=== PATIENT | male | born 1980 | race Caucasian/White ===

== ENCOUNTER 2021-02-02 10:09 | Emergency (ER) | payer MEDICAID, OTHER ==
[~2021-02-02] VITALS: Ht 172.7 cm; Wt 116.6 kg
[~2021-02-02 10:09] MED LIST: CITA10TA11 PO; DEPER500 PO; RISP1TAB1 PO; TRAZ-343 PO
[2021-02-02 10:22] VITALS: BP 134/88
--- NOTE | 2021-02-02 10:28 | NUR ---
Alesia pollard in [facility] - 02/02/21 at 1030 by MED1 [id number]
[2021-02-02 10:40] VITALS: BP 126/73
--- NOTE | 2021-02-02 10:53 | NUR ---
CANDE. HANDED ON URINE CUP.
--- NOTE | 2021-02-02 14:12 | NUR ---
JOSE LARES ATTEMPTED TO CALL PT BACK. NO ANSWER
--- NOTE | 2021-02-02 14:30 | NUR ---
NO ANSWER IN LOBBY
--- NOTE | 2021-02-02 15:50 | NUR ---
PATIENT LEFT WITHOUT BEING SEEN BY JOSE LARES. NO FURTHER CARE PROVIDED FOR PATIENT.
[2021-02-03] MEDS ORDERED: SULF-58 PO (08:53)
[2021-02-03] MEDS ORDERED: NAPR-1704 PO (08:53)
== END 2021-02-02 15:50 | disposition left against medical advice (07) ==
LOC: MED 10:09
DX: R05 Cough (principal); R51.9 Headache, unspecified; M79.10 Myalgia, unspecified site; Z53.21 Procedure and treatment not carried out due to patient leaving prior to being seen by health care provider
CPT/HCPCS: 82948; 99281

== ENCOUNTER 2021-02-03 05:40 | Emergency (ER) | payer OTHER ==
[~2021-02-03] VITALS: Ht 177.8 cm; Wt 117.9 kg
[2021-02-03 05:57] VITALS: BP 146/78
[2021-02-03 07:59] LABS: BASOPHILS % (AUTO) 0.3 % (0.0-2.0); EOSINOPHILS # (AUTO) 0.3 K/uL (0-0.4); EOSINOPHILS % (AUTO) 3.9 % (0.0-4.0); HEMATOCRIT 46.1 % (36-52); HEMOGLOBIN 15.6 g/dL (12.0-18.0); LYMPHOCYTES # (AUTO) 2.3 K/uL (2.0-11.5); LYMPHOCYTES % (AUTO) 26.9 % (20.5-51.1); MEAN CORPUSCULAR HEMOGLOBIN 30 pg (27-31); MEAN CORPUSCULAR HGB CONC 34 g/dL (33-37); MEAN CORPUSCULAR VOLUME 89.1 fL (80-94); MONOCYTES # (AUTO) 0.7 K/uL (0.8-1.0); MONOCYTES % (AUTO) 7.9 % (1.7-9.3); NEUTROPHILS # (AUTO) 5.3 K/uL (1.8-7.7); PLATELET COUNT (AUTO) 309 K/uL (140-450); RED BLOOD CELL COUNT(AUTO) 5.18 MIL/uL (4.20-6.10); RED CELL DISTRIBUTION WIDTH 13.2 % (11.6-13.7); WHITE BLOOD COUNT (AUTO) 8.6 K/uL (4.8-10.8)
[2021-02-03 08:10] LABS: ALBUMIN 3.3 g/dL (3.4-5.0); ANION GAP 8.1 (8-16); CARBON DIOXIDE 29.2 mmol/L (21-32); CREATININE 0.7 mg/dL (0.6-1.3); POTASSIUM 3.3 mmol/L (3.5-5.1); TOTAL BILIRUBIN 0.6 mg/dL (0.0-1.0)
[2021-02-03 08:28] LABS: APPEARANCE,URINE CLEAR (CLEAR); BILIRUBIN,URINE NEGATIVE (NEGATIVE); BLOOD, URINE TRACE-I (NEGATIVE); COLOR,URINE YELLOW (YELLOW); LEUKOCYTE ESTERASE ,URINE 1+ (NEGATIVE); NITRITE, URINE NEGATIVE (NEGATIVE); UGLUCOSE NEGATIVE (NEGATIVE)
[2021-02-03 08:30] LABS: RBC,URINE 0-5 /HPF (0-5)
[2021-02-03 08:31] LABS: WBC,URINE 0-5 /HPF (0-5)
[2021-02-03] MEDS ORDERED: SULF-58 PO (08:53)
[2021-02-03] MEDS ORDERED: NAPR-1704 PO (08:53)
[2021-02-03] MEDS ORDERED: IBUPROFEN 400 MG TAB PO ONE (08:55)
[2021-02-03 09:22] VITALS: BP 151/94
== END 2021-02-03 09:23 | disposition home or self-care (01) ==
LOC: MED 05:40
DX: L98.9 Disorder of the skin and subcutaneous tissue, unspecified (principal); I10 Essential (primary) hypertension; N39.0 Urinary tract infection, site not specified; J45.909 Unspecified asthma, uncomplicated; F17.200 Nicotine dependence, unspecified, uncomplicated; Z79.899 Other long term (current) drug therapy; Z88.8 Allergy status to other drugs, medicaments and biological substances; Z98.890 Other specified postprocedural states
CPT/HCPCS: 36415; 76705; 80053; 81001; 83690; 85025; 87086; 99284

== ENCOUNTER 2021-02-10 05:23 | Emergency (ER) | payer OTHER ==
[~2021-02-10] VITALS: Ht 177.8 cm; Wt 108.9 kg
[~2021-02-10 05:23] MED LIST changes: +NAPR-1704 PO; +SULF-58 PO
[2021-02-10 05:24] VITALS: BP 144/99
--- NOTE | 2021-02-10 05:24 | NUR ---
to bed ambulatory
--- NOTE | 2021-02-10 05:40 | NUR ---
PATIENT C/O RLQ--FLANK PAIN. PATIENT HAS V/N AND DENIES FEVER. PATIENT DENIES TAKING ANY MEDICATION. PATIENT ALSO WAS HERE A COUPLE OF DAYS AGO AND DENIES TAKING ANY OF THE PRESCRIBED MEDICATIONS PREVIOUSLY. 04/11 SHOOTING PAIN THAT RADIATES TO THE BACK AND DOWN THE RIGHT LEG. AAOX4. PMH: UTI DENIES
--- NOTE | 2021-02-10 05:48 | NUR ---
PATIENT COMPLAINING OF PAIN-- NOTIFIED ERMD
--- NOTE | 2021-02-10 06:00 | NUR ---
PATIENT LEFT WITHOUT BEING SEEN BY DR. WASHINGTON. NO FURTHER CARE PROVIDED FOR PATIENT.
[2021-02-10] MEDS ORDERED: ACET-10509 PO (16:53)
[2021-02-10] MEDS ORDERED: DOCU-299 PO (16:53)
== END 2021-02-10 06:00 | disposition left against medical advice (07) ==
LOC: MED 05:23
DX: R30.9 Painful micturition, unspecified (principal); Z53.21 Procedure and treatment not carried out due to patient leaving prior to being seen by health care provider

== ENCOUNTER 2021-02-10 14:49 | Emergency (ER) | payer OTHER ==
[~2021-02-10] VITALS: Ht 177.8 cm; Wt 108.9 kg
[2021-02-10 14:56] VITALS: BP 169/76
[2021-02-10] MEDS ORDERED: MECLIZINE 25 MG TAB PO ONE (15:20)
--- NOTE | 2021-02-10 15:55 | NUR ---
40 Y/O MALE C/O DIZZINESS AND WEAKNESS X1 HOUR AGO. PT STATES HE FEELS THE ROOM IS SPINNING AND FEELS FAINT, DENIES SYNCOPAL EPISODE. PT ALSO C/O 03/12 RLQ ABDOMINAL PAIN WITH DYSURIA. PT WAS SEEN HERE 02/03 WITH SAME COMPLAINT BUT STATES HE NEVER FILLED PRESCRIPTIONS OR FOLLOWED UP WITH PCP. PT STATES HE WAS CONSTIPATED BUT ADMINISTERED AN ENEMA THIS MORNING WHICH RELIEVED HIM. DENIES NAUSEA/VOMTITING. PT A/O X4 WITH EVEN AND UNLABORED RESPIRATIONS. PMH: HTN, ASTHMA, SEIZURE NKDA
[2021-02-10 16:05] LABS: BASOPHILS % (AUTO) 0.4 % (0.0-2.0); EOSINOPHILS # (AUTO) 0.5 K/uL (0-0.4); EOSINOPHILS % (AUTO) 4.3 % (0.0-4.0); HEMATOCRIT 47.2 % (36-52); HEMOGLOBIN 15.9 g/dL (12.0-18.0); LYMPHOCYTES # (AUTO) 2.4 K/uL (2.0-11.5); LYMPHOCYTES % (AUTO) 22.5 % (20.5-51.1); MEAN CORPUSCULAR HEMOGLOBIN 30 pg (27-31); MEAN CORPUSCULAR HGB CONC 34 g/dL (33-37); MEAN CORPUSCULAR VOLUME 89.8 fL (80-94); MONOCYTES # (AUTO) 0.9 K/uL (0.8-1.0); MONOCYTES % (AUTO) 8.2 % (1.7-9.3); NEUTROPHILS # (AUTO) 6.8 K/uL (1.8-7.7); NEUTROPHILS % (AUTO) 64.6 % (42.2-75.2); PLATELET COUNT (AUTO) 366 K/uL (140-450); RED BLOOD CELL COUNT(AUTO) 5.26 MIL/uL (4.20-6.10); WHITE BLOOD COUNT (AUTO) 10.5 K/uL (4.8-10.8)
[2021-02-10 16:22] LABS: ALBUMIN 3.4 g/dL (3.4-5.0); ANION GAP 7.6 (8-16); CARBON DIOXIDE 31.1 mmol/L (21-32); CREATININE 0.8 mg/dL (0.6-1.3); POTASSIUM 3.7 mmol/L (3.5-5.1); TOTAL BILIRUBIN 0.3 mg/dL (0.0-1.0)
--- NOTE | 2021-02-10 16:46 | NUR ---
JOSE MCKEON EVALUATING PT IN CHAIR A
[2021-02-10] MEDS ORDERED: DOCU-299 PO (16:53)
[2021-02-10] MEDS ORDERED: ACET-10509 PO (16:53)
--- NOTE | 2021-02-10 16:59 | NUR ---
Patient discharged with v/s stable. Written and verbal after care instructions ABOUT CONSTIPATION AND ABDOMINAL PAIN given and explained. Patient alert, oriented and verbalized understanding of instructions. Ambulatory with steady gait. All questions addressed prior to discharge. ID band removed. Patient advised to follow up with PMD. Rx of TYLENOL EXTRA STRENGTH AND DOCUSATE SODIUM given. Patient educated on indication of medication including possible reaction and side effects. Opportunity to ask questions provided and answered.
== END 2021-02-10 16:59 | disposition home or self-care (01) ==
LOC: MED 14:49
DX: K59.00 Constipation, unspecified (principal); J45.909 Unspecified asthma, uncomplicated; I10 Essential (primary) hypertension; Z79.899 Other long term (current) drug therapy
CPT/HCPCS: 36415; 80053; 85025; 93005; 99284; J8597

== ENCOUNTER 2021-03-17 14:00 | Emergency (ER) | payer OTHER ==
[~2021-03-17] VITALS: Ht 180.3 cm; Wt 117.9 kg
[~2021-03-17 14:00] MED LIST changes: +ACET-10509 PO; +DOCU-299 PO
--- NOTE | 2021-03-17 14:00 | NUR ---
1350 - PT BROUGHT TO BED 5 VIA [facility]
[2021-03-17 14:04] VITALS: BP 134/75
[2021-03-17] MEDS ORDERED: LORazepam 2 MG/ML VIAL IM ONE (14:10)
[2021-03-17] MEDS ORDERED: HALOPERIDOL IM 5 MG/ML VIAL IM ONE (14:10)
[2021-03-17] MEDS ORDERED: diphenhydrAMINE 50 MG/ML VIAL IM ONE (14:10)
--- NOTE | 2021-03-17 14:15 | NUR ---
Pt refusing blood work. PD at bedside.
--- NOTE | 2021-03-17 14:15 | NUR ---
Pt placed on 5150 03/17/21 @1400 for DTS by Markus METZGER. Per Markus METZGER, brother reported that pt stated, "I'm just feeling tired. I'm going to end my life. I have 2 cans of gasline in my car. You are going to see me on [employer] news." Pt is homeless and recently lost custody of his daughters. Pt called 911 for cc dizziness. Per EMS entire vehicle smelled of gasoline. Pt had 2 full tanks of gasoline in the car. Pt a&O x4. GCS 15. Pt changed into gown. All belongings given to security.
--- NOTE | 2021-03-17 14:18 | NUR ---
Phleb at bedside
--- NOTE | 2021-03-17 14:26 | NUR ---
EKG being performed at bedside
[2021-03-17 14:33] LABS: BASOPHILS % (AUTO) 0.2 % (0.0-2.0); EOSINOPHILS # (AUTO) 0.3 K/uL (0-0.4); EOSINOPHILS % (AUTO) 2.7 % (0.0-4.0); HEMATOCRIT 46.3 % (36-52); HEMOGLOBIN 15.6 g/dL (12.0-18.0); LYMPHOCYTES # (AUTO) 2.4 K/uL (2.0-11.5); LYMPHOCYTES % (AUTO) 21.9 % (20.5-51.1); MEAN CORPUSCULAR HEMOGLOBIN 30 pg (27-31); MEAN CORPUSCULAR HGB CONC 34 g/dL (33-37); MEAN CORPUSCULAR VOLUME 89.1 fL (80-94); MONOCYTES # (AUTO) 0.8 K/uL (0.8-1.0); MONOCYTES % (AUTO) 7.6 % (1.7-9.3); NEUTROPHILS # (AUTO) 7.5 K/uL (1.8-7.7); NEUTROPHILS % (AUTO) 67.6 % (42.2-75.2); PLATELET COUNT (AUTO) 384 K/uL (140-450); RED CELL DISTRIBUTION WIDTH 13.6 % (11.6-13.7); WHITE BLOOD COUNT (AUTO) 11.1 K/uL (4.8-10.8)
--- NOTE | 2021-03-17 14:50 | NUR ---
MD Garcia made aware lab work and EKG were performed. Okay to hold IM medication at this time.
--- NOTE | 2021-03-17 14:54 | NUR ---
Pt resting in bed with eyes closed. All needs met at this time.
[2021-03-17 15:04] LABS: ALBUMIN 3.6 g/dL (3.4-5.0); ANION GAP 13.1 (8-16); ASPARTATE AMINOTRANSFERASE 10 U/L (15-37); CARBON DIOXIDE 27.5 mmol/L (21-32); CHLORIDE 104 mmol/L (98-107); CREATININE 0.8 mg/dL (0.6-1.3); GFR ARICAN-AMERICAN 137 mL/min (>90); GLUCOSE 92 mg/dL (74-106); POTASSIUM 3.6 mmol/L (3.5-5.1); SODIUM SERUM 141 mmol/L (136-145); TOTAL BILIRUBIN 0.7 mg/dL (0.0-1.0); UREA NITROGEN, BLOOD 11 mg/dL (7-18)
[2021-03-17 15:08] LABS: ACETAMINOPHEN < 0.5 ug/ml (10-30); SALICYLATE < 2.8 mg/dL (2.8-20.0)
--- NOTE | 2021-03-17 17:00 | NUR ---
Pt ambulated to restroom. Urine collected and sent to lab.
--- NOTE | 2021-03-17 17:05 | NUR ---
Chel and Tess collected and sent to lab
[2021-03-17 17:09] LABS: APPEARANCE,URINE HAZY (CLEAR); BILIRUBIN,URINE 1+ (NEGATIVE); BLOOD, URINE NEGATIVE (NEGATIVE); COLOR,URINE YELLOW (YELLOW); LEUKOCYTE ESTERASE ,URINE 1+ (NEGATIVE); NITRITE, URINE NEGATIVE (NEGATIVE); UGLUCOSE NEGATIVE (NEGATIVE)
[2021-03-17 17:14] LABS: RBC,URINE 0-5 /HPF (0-5); WBC,URINE 20-60 /HPF (0-5)
[2021-03-17 17:20] LABS: BARBITURATE, URINE NEGATIVE ng/ml (NEG <=200); BENZODIAZEPINE, URINE NEGATIVE ng/mL (NEG <=200); CANNABINOID, URINE NEGATIVE ng/mL (NEG <=50); COCAINE, URINE NEGATIVE ng/mL (NEG <=300); OPIATE, URINE NEGATIVE ng/mL (NEG <=2000); PHENCYCLIDINE SCREEN,URINE NEGATIVE ng/mL (NEG <=25)
--- NOTE | 2021-03-17 17:48 | NUR ---
Pt resting in bed with eyes closed
--- NOTE | 2021-03-17 18:12 | NUR ---
Pt laying in prone position. Pt dinner tray at pt bedside. Pt made aware.
--- NOTE | 2021-03-17 19:14 | NUR ---
Transfer of care and report given ADILSON Razo
--- NOTE | 2021-03-17 19:16 | NUR ---
REPORT RECIEVED FROM ADILSON ARCE FOR TRANSFER OF CARE AT THIS TIME.
--- NOTE | 2021-03-17 19:27 | NUR ---
Patient appears to be resting comfortably in bed, STATING "IM JUST RESTING MY EYES". Vital Signs within normal limits. Respirations even and unlabored. FINISHED EATING MEAL AT THIS TIME. ALL NEEDS MET. WILL CONTINUE TO MONITOR.
--- NOTE | 2021-03-17 20:06 | NUR ---
PROVIDED PT CUP OF ICE PER REQUEST. RESTING COMFORTABLY IN BED. WILL CONTINUE TO MONITOR.
[2021-03-17] MEDS ORDERED: cephALEXin 500 MG CAP PO ONE (22:55)
[2021-03-17] MEDS ORDERED: ACETAMINOPHEN EXTRA STRENGTH 500 MG TAB PO ONE (23:20)
--- NOTE | 2021-03-18 00:26 | NUR ---
PT PACING FROM RM 5 TO BATHROOM, STATING TO NIKOLAY PATEL "I DONT NEED YOU FOLLOWING ME." REFUSING TO RETURN TO BED, STANDING NEAR TRIAGE WITH HANDS BEHIND BACK. PT CURRENTLY IN RESTROOM.
--- NOTE | 2021-03-18 00:38 | NUR ---
HOUSE SUP. CALLED, HELPED ESCORT PT BACK TO BED. DISCUSSED WITH PT HE IS TO REMAIN IN ROOM AND USE URINAL IF NEEDED. PT STATES "BECAUSE YOU TOLD ME, I WILL." PT COOPERATIVE AT THIS TIME. OBTAINED PTS CELL PHONE. WILL CONTINUE TO MONITOR.
--- NOTE | 2021-03-18 00:45 | NUR ---
PT SITTING IN BED QUIETLY, AWAKE, AND EATING CRACKERS AND DRINKING JUICE. WILL CONTINUE TO MONITOR.
--- NOTE | 2021-03-18 01:11 | NUR ---
Patient appears to be resting comfortably in bed, COOPERATIVE WHEN TAKING VITAL SIGNS. Vital Signs within normal limits. Respirations even and unlabored. WILL CONTINUE TO MONITOR.
--- NOTE | 2021-03-18 02:30 | NUR ---
Patient appears to be resting comfortably in bed, AUDIBLE SNORING HEARD. Respirations even and unlabored. WILL CONTINUE TO MONITOR.
--- NOTE | 2021-03-18 03:30 | NUR ---
Patient appears to be resting comfortably in bed, AUDIBLE SNORING HEARD. Respirations even and unlabored. WILL CONTINUE TO MONITOR.
--- NOTE | 2021-03-18 04:30 | NUR ---
Patient appears to be resting comfortably in bed, AUDIBLE SNORING HEARD. Respirations even and unlabored. WILL CONTINUE TO MONITOR.
--- NOTE | 2021-03-18 05:30 | NUR ---
Patient appears to be resting comfortably in bed, AUDIBLE SNORING HEARD. Respirations even and unlabored. WILL CONTINUE TO MONITOR.
--- NOTE | 2021-03-18 06:15 | NUR ---
Patient appears to be resting comfortably in bed, AWAKE AND SITTING UP IN BED QUIETLY. VSS. WILL CONTINUE TO MONITOR.
--- NOTE | 2021-03-18 07:10 | NUR ---
REPORT GIVEN TO ADILSON CAICEDO FOR CONTINUITY OF CARE.
--- NOTE | 2021-03-18 11:11 | NUR ---
RECEIVED REPORT FROM ADILSON POTTER. TRANSFER OF CARE AT THIS TIME.
--- NOTE | 2021-03-18 11:16 | NUR ---
PT SLEEPING ON LEFT SIDE, EASILY AROUSABLE, VSS, WILL CONTINUE TO MONITOR.
--- NOTE | 2021-03-18 12:49 | NUR ---
Late Entry: Packet was received 03/17/21 and was faxed out to the following facilities [facility]
--- NOTE | 2021-03-18 13:05 | NUR ---
Fax packet to [facility]
--- NOTE | 2021-03-18 15:15 | NUR ---
PT SLEEPING ON RIGHT SIDE, VISIBLE EQUAL RISE AND FALL OF CHEST, VSS, WILL CONTINUE TO MONITOR.
--- NOTE | 2021-03-18 15:39 | NUR ---
PT REQUESTING TO SPEAK WITH ERMD TO SEE PSYCH REPORT. MADE AWARE.
--- NOTE | 2021-03-18 15:42 | NUR ---
DR. RIOS WITH PT TO SHOW COPIES OF PSYCH REPORT, PT RE-EDUCATED ON WHY HE IS STILL ON A 5150.
--- NOTE | 2021-03-18 17:20 | NUR ---
PT BECOMING INCREASINGLY AGITATED, DEMANDING TO KEEP CURTAIN CLOSED 1/3RD OF THE WAY, DR. RIOS MADE AWARE.
--- NOTE | 2021-03-18 17:42 | NUR ---
PER DR. GABRIEL GIRON OK TO BE 1/3RD CLOSED, PT CALM AND COOPERATIVE AT THIS TIME.
[2021-03-18] MEDS ORDERED: cephALEXin 500 MG CAP PO ONE (18:30)
[2021-03-18] MEDS ORDERED: ALBUTEROL SULFATE/IPRATROPIU 3 ML SOL IH ONE ×3 (18:30→21:20)
--- NOTE | 2021-03-18 19:14 | NUR ---
PT REQUESTING A SECOND DINNER TRAY, SNACKS PROVIDED. REEDUCATED THAT PT WAS FED DINNER, PT DENIES.
--- NOTE | 2021-03-18 20:22 | NUR ---
GAVE REPORT TO ADILSON SINGLETON. TRANSFER OF CARE AT THIS TIME.
[2021-03-18] MEDS ORDERED: ALBUTEROL 0.083% 2.5 MG/3 ML NEBU INH ONE ×2 (21:23→21:25)
--- NOTE | 2021-03-18 21:26 | NUR ---
CALLED TO BEDSIDE FOR Tx (DUO) PT REFUSED DUO AND REQUESTING ALB ONLY DUONEB WAS WASTED IT WAS OPENED AND ALB WAS PROVIDED TO PT
[2021-03-18] MEDS ORDERED: cephALEXin 500 MG CAP ONE (21:36)
--- NOTE | 2021-03-18 21:45 | NUR ---
PT IN BED AWAKE. ALL NEEDS MET AT THIS TIME
--- NOTE | 2021-03-18 23:45 | NUR ---
Patient appears to be resting comfortably in bed. Respirations even and unlabored.
--- NOTE | 2021-03-19 01:16 | NUR ---
Patient appears to be resting comfortably in bed, AUDIBLE SNORING HEARD. Respirations even and unlabored. WILL CONTINUE TO MONITOR.
--- NOTE | 2021-03-19 03:45 | NUR ---
Patient appears to be resting comfortably in bed, AUDIBLE SNORING HEARD. Respirations even and unlabored. WILL CONTINUE TO MONITOR.
--- NOTE | 2021-03-19 05:50 | NUR ---
Patient appears to be resting comfortably in bed, AUDIBLE SNORING HEARD. Respirations even and unlabored. WILL CONTINUE TO MONITOR.
--- NOTE | 2021-03-19 08:51 | NUR ---
Patient appears to be resting comfortably in bed with eyes closed. Vital Signs within normal limits. Respirations even and unlabored. pt informed curtain needs to stay open
--- NOTE | 2021-03-19 10:04 | NUR ---
[place] [facility] [place] AT THIS TIME. SECURITY MATTIE AT BEDSIDE.
[2021-03-19] MEDS ORDERED: risperiDONE 1 MG TAB PO SCH (10:10)
[2021-03-19] MEDS ORDERED: CRUSHER, PILL MC ONE (11:16)
[2021-03-19] MEDS: DOCUSATE SODIUM 100 MG GELCAP PO SCH (11:20)
--- NOTE | 2021-03-19 11:30 | NUR ---
RAD AT BEDSIDE
--- NOTE | 2021-03-19 11:35 | NUR ---
XRAY BEDSIDE WITH PT
--- NOTE | 2021-03-19 12:05 | NUR ---
PT PROVIDED WITH LUNCH TRAY BEDISDE
--- NOTE | 2021-03-19 12:25 | NUR ---
PT REFUSING TO EAT LUNCH DUE TO BE ALLERGIC TO FISH. OFFERED TO REODER PT LUNCH TRAY WITH CHICKEN, BUT PT REFUSED
--- NOTE | 2021-03-19 13:18 | NUR ---
PT AMBULATED TO RESTROOM AND LOCKED DOOR. PT STARTED TO SLAM ITEMS IN THE RESTROOM. SECURITY WAS CALLED AND PAOLO EMT AND MERLYN EMT WENT TO RESTROOM TO MONITOR PT. DR. MARIN HAS SPOKE WITH PT IN RESTROOM TO DIFUSE SITUATION. PT HAS BEEN GIVEN WASH CLOTHS AND WIPES TO CLEAN HIMSELF
[2021-03-19] MEDS ORDERED: LORazepam 1 MG TAB ONE (13:20)
[2021-03-19] MEDS ORDERED: LORazepam 1 MG TAB PO ONE (13:20)
--- NOTE | 2021-03-19 13:26 | NUR ---
2 MG OF ATIVAN PULLED FROM OMICELL AND PT REFUSED [address] MARIN MADE AWARE AND 1 MG WASTED IN OMICELL WITH WITNESS CO-SIGN
--- NOTE | 2021-03-19 13:29 | NUR ---
Patient still in ER for placement. Per notes, patient being re-evaluated for psych. Patient's 5150 does not till 03/20/21. Will continue to seek placement
--- NOTE | 2021-03-19 13:40 | NUR ---
Fax packet to the following facilities [facility] [place]
--- NOTE | 2021-03-19 14:58 | NUR ---
pt is currently sleeping bedside with eyes closed. bed is in lowest position and curtain is open to provide view of patient. equal chest rise and fall noted of patient. will reassess vitals once patient has woken up
[2021-03-19] MEDS ORDERED: ACETAMINOPHEN EXTRA STRENGTH 500 MG TAB PO ONE (15:50)
[2021-03-19] MEDS ORDERED: ACETAMINOPHEN EXTRA STRENGTH 500 MG TAB ONE (15:52)
--- NOTE | 2021-03-19 18:06 | NUR ---
pt is currently resting in bed with eyes open. bed is in lowest position with siderail x2 up. vital signs charted and within normal limits. will continue to monitor pt status
--- NOTE | 2021-03-19 19:23 | NUR ---
Pt report given to ADILSON SINGLETON. Transfer of care at this time.
--- NOTE | 2021-03-20 00:45 | NUR ---
pt is currently resting in bed with eyes open. bed is in lowest position with siderail x2 up. vital signs charted and within normal limits.
--- NOTE | 2021-03-20 02:10 | NUR ---
pt is currently resting in bed with eyes open. bed is in lowest position with siderail x2 up. vital signs charted and within normal limits.
[2021-03-20] MEDS: DOCUSATE SODIUM 100 MG GELCAP PO SCH (04:01)
--- NOTE | 2021-03-20 04:05 | NUR ---
PT AWAKE AND C/O LEFT SIDE ABD PAIN. PT STATES THAT HE HAS NOT HAD A BM SINCE ADMISSION. GAVE EAGLE.
[2021-03-20] MEDS ORDERED: POLYETHYLENE GLYCOL 17 GM/PKT PO ONE (05:00)
[2021-03-20] MEDS ORDERED: POLYETHYLENE GLYCOL 17 GM/PKT ONE (05:04)
--- NOTE | 2021-03-20 05:30 | NUR ---
PT STILL C/O PAIN IN ABD. ERMD ORDERED MIRALAX.
--- NOTE | 2021-03-20 06:06 | NUR ---
PT C/O PAIN. STATES THAT THE MEDS ARE NOT WORKING. HE STATED "I KNOW MY BODY AND THEY SHOULD HAVE WORKED BY NOW." ADVISED TO GIVE IT A LITTLE MORE TIME. PT IS AMBULATING TO THE RESTROOM FREELY
[2021-03-20] MEDS ORDERED: DICYCLOMINE 10 MG CAP PO ONE (06:30)
--- NOTE | 2021-03-20 07:07 | NUR ---
REPORT AND CONTINUATION OF CARE RECEIVED FROM ALO/ADILSON TONG.
--- NOTE | 2021-03-20 08:48 | NUR ---
PATIENT RESTING IN BED AT THIS TIME, RR EVEN AND UNLABORED.
[2021-03-20] MEDS ORDERED: CRUSHER, PILL MC ONE (09:28)
[2021-03-20] MEDS: risperiDONE 1 MG TAB PO SCH (09:33)
--- NOTE | 2021-03-20 10:00 | NUR ---
PATIENT BEING EVALUATED BY PSYCH MD MON AT THIS TIME VIA TABLET [employer].
--- NOTE | 2021-03-20 11:22 | NUR ---
PATIENT EATING MEALTRAY AT BEDSIDE.
--- NOTE | 2021-03-20 11:35 | NUR ---
PATIENT AMBULATED TO BATHROOM, STEADY GAIT.
--- NOTE | 2021-03-20 14:19 | NUR ---
PATIENT IN BED RESTING, VSS, RR EVEN AND UNLABORED.
--- NOTE | 2021-03-20 15:15 | NUR ---
patient taken to shower accompanied by security miranda.
--- NOTE | 2021-03-20 15:28 | NUR ---
PT BACK FROM SHOWER. PT PROVIDED CLEAN GOWN, NEW SHEETS AND BLANKETS.
--- NOTE | 2021-03-20 15:31 | NUR ---
patient returned from shower.
--- NOTE | 2021-03-20 15:40 | NUR ---
patient given a sandwich and crackers.
--- NOTE | 2021-03-20 16:16 | NUR ---
Patient's 5150 has . Will need new 5150 for further placement. S/W Jayant in ER. Will fax new 5150 when written
--- NOTE | 2021-03-20 16:30 | NUR ---
MARQUIS/PD CALLED TO RE-EVAL PT'S [phone]. MARQUIS/ ETA-UNK AT HIS TIME.
--- NOTE | 2021-03-20 16:55 | NUR ---
PD AT BEDSIDE EVALUATING PATIENT FOR 5150, STATES PATIENT DOES NOT MEET CRITERIA.
--- NOTE | 2021-03-20 18:06 | NUR ---
PATIENT AWAKE AND ALERT, ON CELLPHONE AT THIS TIME.
--- NOTE | 2021-03-20 18:11 | NUR ---
MEALTRAY AT BEDSIDE, PATIENT EATING AT THIS TIME.
--- NOTE | 2021-03-20 18:20 | NUR ---
PATIENT IS WILLING TO VOLUNTARILY GO TO A PSYCH FACILITY.
--- NOTE | 2021-03-20 18:34 | NUR ---
BROTHER MADDI CALELS NUMBER [phone], GIVEN UPDATE ON CARE AND STATUS.
--- NOTE | 2021-03-20 19:20 | NUR ---
RECEIVED REPORT FROM CHANDU DE ANDA, TRANSFER OF CARE AT THIS TIME
--- NOTE | 2021-03-20 19:30 | NUR ---
PT LAYING IN BED WITH EVEN AND UNLABORED RESPIRATIONS. PT A/O X4, GCS 15. WILL CONTINUE TO MONITOR
[2021-03-20] MEDS ORDERED: CEPHALEXIN SUSP. 250 MG/5 ML PO SCH (20:30)
[2021-03-20] MEDS ORDERED: cephALEXin 500 MG CAP PO SCH (21:00)
--- NOTE | 2021-03-20 21:30 | NUR ---
PT HUNGRY AND REQUESTING FOOD. SANDWICH AND APPLE JUICE PROVIDED.
--- NOTE | 2021-03-20 23:44 | NUR ---
PT SLEEPING IN BED WITH EVEN AND UNLABORED RESPIRATIONS OBSERVED. AUDIBLE SNORING NOTED. WILL CONTINUE TO MONITOR.
--- NOTE | 2021-03-21 02:09 | NUR ---
PT SLEEPING IN BED WITH EVEN AND UNLABORED RESPIRATIONS OBSERVED. NO SIGNS OF DISTRESS. WILL CONTINUE TO MONITOR
--- NOTE | 2021-03-21 02:15 | NUR ---
REPORT GIVEN TO MANI DE ANDA, TRANSFER OF CARE AT THIS TIME.
[2021-03-21] MEDS ORDERED: LORazepam 1 MG TAB PO ONE (03:20)
[2021-03-21] MEDS ORDERED: LORazepam 1 MG TAB ONE (04:53)
[2021-03-21] MEDS ORDERED: ONDANSETRON 4 MG ODT PO ONE (05:40)
[2021-03-21] MEDS ORDERED: CIPROFLOXACIN 250 MG TAB PO ONE (06:10)
--- NOTE | 2021-03-21 07:12 | NUR ---
REPORT AND CONTINUATION OF CARE RECEIVED FROM ADILSON TONG.
[2021-03-21 07:30] VITALS: BP 158/98
--- NOTE | 2021-03-21 07:45 | NUR ---
MEALTRAY AT BEDSIDE, PATIENT EATING AT THIS TIME.
[2021-03-21] MEDS ORDERED: CIPROFLOXACIN 250 MG TAB ONE (08:55)
[2021-03-21] MEDS ORDERED: ONDANSETRON 4 MG TAB ONE (08:55)
[2021-03-21] MEDS: risperiDONE 1 MG TAB PO SCH (08:57)
--- NOTE | 2021-03-21 08:58 | NUR ---
PATIENT GIVEN PO MEDICATIONS AT THIS TIME.
--- NOTE | 2021-03-21 09:30 | NUR ---
PATIENT BEING EVALUATED BY PSYCH MD MON AT THIS TIME VIA TABLET [employer].
[2021-03-21] MEDS ORDERED: DIVA-58 PO (09:38)
[2021-03-21] MEDS ORDERED: CIPR500T9 PO (09:40)
[2021-03-21] MEDS ORDERED: RISP0.5T3 PO (09:40)
--- NOTE | 2021-03-21 09:40 | NUR ---
PSYCH MD MON EVALUATED PATIENT, STATED OKAY TO DISCHARGE PATIENT WITH MEDICATIONS RISPERIDAL AND DEPAKOTE.
--- NOTE | 2021-03-21 10:12 | NUR ---
PATIENT DISCHARED WITH MENTAL HEALTH RESOURCE PACKET AND TAXI CAB TO [facility] PER [facility] REQUEST WHERE IS CAR IS LOCATED.
--- NOTE | 2021-03-21 10:12 | NUR ---
Patient discharged with v/s stable. Written and verbal after care instructions given and explained. Patient alert, oriented and verbalized understanding of instructions. Ambulatory with steady gait. All questions addressed prior to discharge. ID band removed. Patient advised to follow up with PMD. Rx of CIPRO,DEPAKOTE,RISPERIDAL given. Patient educated on indication of medication including possible reaction and side effects. Opportunity to ask questions provided and answered.
== END 2021-03-21 10:12 | disposition home or self-care (01) ==
LOC: MED 14:00
DX: R45.851 Suicidal ideations (principal); N39.0 Urinary tract infection, site not specified; J45.909 Unspecified asthma, uncomplicated; I10 Essential (primary) hypertension; F20.9 Schizophrenia, unspecified; Z91.018 Allergy to other foods; Z20.822 Contact with and (suspected) exposure to COVID-19
CPT/HCPCS: 74021; 80053; 80305; 81001; 85025; 87086; 87426; 93005; 99285; G0480; G0482; J7613; Q0092; Q0162; U0003